=== PATIENT | female | born 1940 | race Caucasian/White ===

== ENCOUNTER 2023-11-07 16:54 | Emergency (ER) | payer MEDICARE, SELFPAY ==
[2023-11-07 17:08] VITALS: BP 139/76; PULSE 76; RESP 16; TEMP 36.3; O2SAT 95
--- NOTE | 2023-11-07 17:08 | ED.GENADULT ---
HPI - General Adult General Chief complaint: Unspecified Stated complaint: blood pressure high Time Seen by Provider: 11/07/23 17:16 Mode of arrival: ambulatory Limitations: no limitations History of Present Illness HPI narrative: 83-year-old female presents with concern of for high blood pressure readings at home. Reports for a month or so she has intermittent pressure with systolic numbers in the 170s and 180s, usually in the morning. She denies any symptoms high blood pressure readings. She reports she has been taking her antihypertensives as usual. MD complaint: High blood pressure Related Data Home Medications Medication Instructions Recorded Confirmed Provigil 11/07/23 albuterol sulfate 90 mcg/actuation inhalation 11/07/23 aerosol inhaler apixaban 5 mg tablet (Eliquis) mg 11/07/23 yieyuubmwc-abonnjxchzars-vgguksdk tablet 11/07/23 50 mg-325 mg-40 mg tablet citalopram 20 mg tablet mg 11/07/23 empagliflozin 25 mg tablet mg 11/07/23 (Jardiance) furosemide 40 mg tablet mg 11/07/23 glipizide 10 mg tablet mg 11/07/23 levothyroxine 125 mcg tablet mcg 11/07/23 methocarbamol 500 mg tablet mg 11/07/23 metolazone 5 mg tablet mg 11/07/23 metoprolol tartrate 25 mg tablet mg 11/07/23 omeprazole 20 mg capsule,delayed mg 11/07/23 release potassium chloride 20 mEq meq PO 11/07/23 tablet,extended release(part/cryst) pravastatin 10 mg tablet mg 11/07/23 pregabalin 150 mg capsule mg 11/07/23 trazodone 50 mg tablet mg 11/07/23 Allergies Allergy/AdvReac Type Severity Reaction Status Date / Time metformin Allergy Unknown Verified 11/07/23 17:20 nitrofurantoin Allergy Unknown Verified 11/07/23 17:20 [From Macrobid] Review of Systems Review of Systems: CONSTITUTIONAL: Denies malaise, chills, sweats, or fever. EYES: Denies visual changes CARDIOVASCULAR: Denies chest pain, palpitations, or edema. RESPIRATORY: Denies cough or dyspnea. NEUROLOGIC: Denies numbness, weakness, or headache. All systems reviewed & are unremarkable except as noted in HPI and below PMFSH Comments At time of signature, agree with nursing past medical, surgical, social and family history. There is no relevant family history pertinent to the presenting complaint Exam Narrative: GENERAL: Well-appearing, well-nourished, and in no acute distress. HEAD: Normocephalic, atraumatic. EYES: PERRLA, sclera clear, and EOMI. ENT: Nares clear. Mucous membranes moist. NECK: Supple. CHEST: No respiratory distress. Clear to auscultation. No bony deformities, no asymmetry. Speaks in full sentences. HEART: Regular rate and rhythm. No murmur heard. Normal peripheral pulses. SKIN: Warm, dry, no visible rash. NEURO: Alert and oriented x3. No focal deficits. Cranial nerves II through XII grossly intact PSYCH: Normal mood and affect Course Course Emergency Course: Patient is aware of diagnosis, understands and agrees to treatment plan. Anticipatory guidance given. Patient agrees to follow-up as directed and is aware of reasons to seek care at the emergency department. Portions of this record may have been created with voice recognition software Level of Care: Express Care Visit Vital Signs Vital signs: Reviewed. Medical Decision Making MDM Narrative Medical decision making narrative: The patient was evaluated by myself in the emergency department. History is obtained from patient who is an independent historian and physical exam was performed.? Available medical records were reviewed at this time. ? Exam findings show no acute concerns or changes; patient is non-toxic appearing and is in no distress. Patient is appropriate for outpatient treatment and follow-up. ? I have evaluated and discussed social determinants of health with the patient that could potentially impact subsequent diagnosis and treatment plans. ? Differential diagnosis and treatment plan were discussed with the patient. Patient agrees with discussion
== END 2023-11-07 17:29 | disposition home or self-care (01) ==
PROVIDERS: Emergency Provider Nurse Practitioner; PCP Hospitalist
DX: I10 Essential (primary) hypertension (principal); E78.00 Pure hypercholesterolemia, unspecified; K21.9 Gastro-esophageal reflux disease without esophagitis; E11.9 Type 2 diabetes mellitus without complications; Z85.72 Personal history of non-Hodgkin lymphomas
CPT/HCPCS: 99211; G0463